=== PATIENT | male | born 1950 | race Caucasian/White ===

== ENCOUNTER 2017-06-17 01:40 | Emergency (ER) | payer SELFPAY ==
[~2017-06-17] VITALS: Ht 167.6 cm; Wt 81.6 kg
[2017-06-17] MEDS ORDERED: PROPOFOL 10 MG/ML 20 ML IV ONE (04:00)
[2017-06-17 08:28] VITALS: BP 146/91
== END 2017-06-17 08:45 | disposition home or self-care (01) ==
LOC: ER 01:40
DX: F03.90 Unspecified dementia, unspecified severity, without behavioral disturbance, psychotic disturbance, mood disturbance, and anxiety (principal); E11.9 Type 2 diabetes mellitus without complications; I10 Essential (primary) hypertension; E78.5 Hyperlipidemia, unspecified; R42 Dizziness and giddiness; Z98.2 Presence of cerebrospinal fluid drainage device
CPT/HCPCS: 70450; J2704

== ENCOUNTER 2017-06-18 16:31 | Emergency (ER) | payer BC, OTHER ==
[~2017-06-18] VITALS: Ht 160 cm; Wt 86.2 kg
[2017-06-19 04:01] VITALS: BP 124/87
== END 2017-06-19 05:31 | disposition home or self-care (01) ==
LOC: ER 16:54
DX: F41.9 Anxiety disorder, unspecified (principal); R45.1 Restlessness and agitation; F03.90 Unspecified dementia, unspecified severity, without behavioral disturbance, psychotic disturbance, mood disturbance, and anxiety; E11.9 Type 2 diabetes mellitus without complications; E78.5 Hyperlipidemia, unspecified; I10 Essential (primary) hypertension; Z87.820 Personal history of traumatic brain injury